=== PATIENT | male | born 1950 | race Two or more races ===

== ENCOUNTER 2023-11-15 16:18 | Inpatient (IN) | payer OTHER ==
[~2023-11-15] VITALS: Ht 177.8 cm; Wt 101.6 kg
[2023-11-15] MEDS ORDERED: GLUMETZA500 MG (16:50)
[2023-11-15] MEDS ORDERED: ATORVASTATIN CA10 MG (16:51)
[2023-11-15] MEDS ORDERED: ELIQUIS2.5 MG (16:51)
[2023-11-15 17:35] LABS: MEAN CORPUSCULAR HGB CONC 30.4 g/dl (32.0-36.0); RED BLOOD COUNT 3.68 M/uL (4.00-6.00); RED CELL DISTRIBUTION WIDTH 21.4 % (11.5-14.5)
[2023-11-15 17:53] LABS: ALBUMIN 3.6 gm/dL (3.4-5.0); BILIRUBIN TOTAL 2.03 mg/dL (0.3-1.2); CALCIUM 8.8 mg/dL (8.5-10.1); CREATININE SERUM 1.17 mg/dL (0.70-1.30); GFR 61.28; GLOBULINA 3.3 G/DL (2.4-3.5); POTASSIUM 4.21 mEq/L (3.5-5.1); TOTAL PROTEIN 6.9 gm/dL (6.4-8.2)
[2023-11-15 18:04] LABS: HEMATOCRIT 23.4 % (39.0-48.0); MEAN CELL VOLUME 63.6 fL (80.0-100.00); MEAN CORPUSCULAR HEMOGLOBIN 19.2 pg (27.00-32.0); PLATELET COUNT 95 K/uL (150-450)
[2023-11-15 18:05] LABS: HEMOGLOBIN 7.1 g/dL (13-16.00)
[2023-11-15] MEDS ORDERED: FUROsemide 20 MG/2 ML VIAL IV SCH (18:15)
[2023-11-15] MEDS ORDERED: DEXTROSE 50 % IN WATER 0.5 G/ML DISP.SYRIN IV PRN (19:15)
[2023-11-15] MEDS ORDERED: ONDANSETRON HCL 4 MG in 0.9 % SODIUM CHLORIDE 50 ML IV PRN (19:15)
[2023-11-15] MEDS ORDERED: 0.9 % SODIUM CHLORIDE 1,000 ML IV SCH (19:15)
[2023-11-15] MEDS ORDERED: INSULIN LISPRO 1,000 UNIT/10 ML UNITS SUBCUTANEO PRN (19:15)
[2023-11-15] MEDS ORDERED: ACETAMINOPHEN 500 MG GEL..CAP PO PRN (19:15)
[2023-11-15 20:38] LABS: D DIMER 0.61 MG/L; PARTIAL THROMBOPLASTIN TIME 27.5 SECONDS (22.0-34.0)
[2023-11-16 05:35] LABS: PH,URINE 5.5 (5.0-8.0); URINE APPEARANCE Clear; URINE BILIRRUBIN Negative (NEGATIVE); URINE BLOOD Negative; URINE COLOR Yellow; URINE GLUCOSE Negative (NEGATIVE); URINE LEUKOCYTE Negative; URINE NITRATE Negative; URINE PROTEIN Negative (NEGATIVE)
[2023-11-16 05:39] LABS: URINE BACTERIA 21.4 uL (0.0-1933); URINE EPITHELIAL CELLS 5.4 uL (0.0-38.8); URINE WBC 2.6 uL (0.0-23.2)
[2023-11-16 06:05] LABS: URINE RBC 1.4 uL (0.0-20.8)
[2023-11-16] MEDS ORDERED: PANTOPRAZOLE SODIUM 40 MG/VIAL VIAL IV SCH (09:00)
[2023-11-16 23:53] LABS: HEMATOCRIT 34.8 % (39.0-48.0); HEMOGLOBIN 10.9 g/dL (13-16.00); MEAN CORPUSCULAR HEMOGLOBIN 21.3 pg (27.00-32.0); MEAN CORPUSCULAR HGB CONC 31.3 g/dl (32.0-36.0); RED BLOOD COUNT 5.13 M/uL (4.00-6.00)
[2023-11-16 23:54] LABS: MEAN CELL VOLUME 67.9 fL (80.0-100.00); PLATELET COUNT 89 K/uL (150-450); RED CELL DISTRIBUTION WIDTH 25.4 % (11.5-14.5)
[2023-11-17 08:22] LABS: PLATELET ESTIMATE NORMAL (NORMAL)
== END 2023-11-17 19:22 | disposition home or self-care (01) | DRG 812 ==
LOC: ER 16:18 → MEDJ 20:20
PROVIDERS: General Practice; ADMIT Specialist; ATTEND Specialist
PROC: BW28ZZZ Computerized Tomography (CT Scan) of Head (ICD-10-PCS; principal; 2023-11-15)
PROC: BN25ZZZ Computerized Tomography (CT Scan) of Facial Bones (ICD-10-PCS; 2023-11-15)
PROC: BW40ZZZ Ultrasonography of Abdomen (ICD-10-PCS; 2023-11-15)
PROC: 4A12X4Z Monitoring of Cardiac Electrical Activity, External Approach (ICD-10-PCS; 2023-11-15)
PROC: 30233N1 Transfusion of Nonautologous Red Blood Cells into Peripheral Vein, Percutaneous Approach (ICD-10-PCS; 2023-11-16)
DX: D64.9 Anemia, unspecified (principal); K74.69 Other cirrhosis of liver; D58.9 Hereditary hemolytic anemia, unspecified; E83.119 Hemochromatosis, unspecified; D69.6 Thrombocytopenia, unspecified; I10 Essential (primary) hypertension; E11.9 Type 2 diabetes mellitus without complications; Z79.4 Long term (current) use of insulin